=== PATIENT | male | born 1960 | race Caucasian/White ===

== ENCOUNTER 2018-03-06 09:11 | Inpatient (IN) | payer OTHER ==
[2018-03-06] VITALS (10 sets, daily range): BP systolic 87–111; BP diastolic 42–78
[~2018-03-06] VITALS: Ht 185.4 cm; Wt 86.2 kg
--- NOTE | ~2018-03-06 | EKG ---
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
[2018-03-06 09:29] LABS: HEMATOCRIT 47.3 % (42.0-52.0); HEMOGLOBIN 15.9 gm/dL (14.0-18.0); MCH 30.4 pg (26.0-34.0); MCHC 33.7 g/dL (28.0-37.0); PLATELET COUNT 273 thou/uL (150-400); RBC 5.25 mil/uL (4.50-6.00); RDW 13.7 % (10.5-14.5); WBC 13.2 thou/uL (4.0-11.0)
[2018-03-06 09:34] LABS: ANION GAP 12 mmol/L (7-16); BUN 85 mg/dL (7-18); CALCIUM 9.4 mg/dL (8.5-10.1); CHLORIDE 91 mmol/L (98-107); CO2 27 mmol/L (21-32); CREATININE 3.4 mg/dL (0.7-1.3); GLUCOSE 123 mg/dL (74-106); POTASSIUM 3.1 mmol/L (3.5-5.1); SODIUM 130 mmol/L (136-145)
[2018-03-06 09:42] LABS: ALBUMIN 3.2 g/dL (3.4-5.0); DIRECT BILIRUBIN < 0.1 mg/dL (<0.1-0.3); LIPASE 231 U/L (73-393); SGOT 48 U/L (15-37); SGPT 56 U/L (30-65); TOTAL BILIRUBIN 0.3 mg/dL (<0.1-1.0); TOTAL PROTEIN 7.2 g/dL (6.4-8.2); TROPONIN-I 0.08 ng/mL (<0.06)
[2018-03-06 10:14] LABS: ABSOLUTE NEUTROPHILS 8.8 thou/uL (1.4-8.2); ANISOCYTOSIS SLIGHT; ATYPICAL LYMPHS 3 %
--- NOTE | 2018-03-06 10:33 | NUR ---
CARDIZEM DRIP D/C AT THIS TIME PER DR. BUSTILLOS D/T PROGRESSING HYPOTENSION
[2018-03-06 11:39] LABS: MAGNESIUM 2.1 mg/dL (1.8-2.4)
[2018-03-06] MEDS ORDERED: PRINIVIL10 MG PO (12:46)
[2018-03-06] MEDS ORDERED: PROAIR HFA8.5 GM INH (12:47)
[2018-03-06] MEDS ORDERED: LIPITOR40 MG PO (12:47)
[2018-03-06] MEDS ORDERED: ASPIR-LOW81 MG PO (12:48)
--- NOTE | 2018-03-06 13:40 | EKG ---
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
[2018-03-06 15:22] LABS: URINE BILIRUBIN NEGATIVE (Negative); URINE BLOOD 1+ (Negative); URINE CLARITY CLEAR; URINE COLOR YELLOW; URINE GLUCOSE-RANDOM* NEGATIVE (Negative); URINE KETONES NEGATIVE (Negative); URINE LEUKOCYTES-REFLEX NEGATIVE (Negative); URINE NITRITE-REFLEX NEGATIVE (Negative); URINE PROTEIN (DIPSTICK) NEGATIVE (Negative); URINE UROBILINOGEN 0.2 E.U./dl (0.2-1.0)
[2018-03-06 15:25] LABS: AMP/METHAMP Negative (Negative); BARBITURATES Negative (Negative); BENZODIAZEPINES Negative (Negative); COCAINE Negative (Negative); METHADONE Negative (Negative); OPIATES Negative (Negative); PCP Negative (Negative)
[2018-03-06 15:26] LABS: BACTERIA-REFLEX None Seen /HPF (None Seen); CRYSTALS None Seen /LPF (None Seen); HYALINE CASTS 0-3 Few /LPF (None Seen); SQUAMOUS None Seen /LPF (0-3); URINE RBC None Seen /HPF (0-2); URINE WBC-REFLEX None Seen /HPF (0-5)
--- NOTE | 2018-03-06 18:49 | NUR ---
ASSUMED CARE OF PT (FROM ER) AT APPROX 1200. PT A&OX4, UP WITH STANDBY. PT IS STEADY BUT FALL RISK DUE TO LOW BP, AND MULTIPLE IV LINES. PT ON AMIODARONE AND DILT DRIP AND HEART RATE IS AFIB AT APPROX 118 BPM. PTS BLOOD PRESSURE SLIGHTLY LOW BUT MAP ABOVE 70. PT'S HEART RATE INCREASES TO 140'S WHEN UP TO BATHROOM. PT SEEN BY CARDIOLOGY. IF HEART RATE IS WNL CARDIZEM TO BE TITRATED DOWN OR DISCONTINUED FIRST AND AMIODARONE CONTINUED OVERNIGHT. PT REHYDRATED WITH FLUIDS AND URINATING ADEQUATE AMOUNT OF LIGHT YELLOW CLR URINE. WILL CONT WITH POC.
[2018-03-07] VITALS (11 sets, daily range): BP systolic 86–122; BP diastolic 58–80
[2018-03-07 05:36] LABS: ABSOLUTE NEUTROPHILS 6.4 thou/uL (1.4-8.2); BASOPHILS 0.2 % (0.0-2.0); EOSINOPHILS 0.7 % (0.0-3.0); LYMPHOCYTES 29.3 % (24.0-44.0); MCH 30.5 pg (26.0-34.0); MCV 89.8 fL (80.0-100.0); MONOCYTES 11.9 % (1.0-8.0); PLATELET COUNT 220 thou/uL (150-400); POLYS 57.9 % (36.0-66.0); RBC 4.24 mil/uL (4.50-6.00); RDW 13.6 % (10.5-14.5); WBC 11.1 thou/uL (4.0-11.0)
[2018-03-07 05:37] LABS: HEMOGLOBIN 12.9 gm/dL (14.0-18.0)
[2018-03-07 05:57] LABS: ANION GAP 9 mmol/L (7-16); BUN 32 mg/dL (7-18); CALCIUM 8.3 mg/dL (8.5-10.1); CHLORIDE 106 mmol/L (98-107); CHOLESTEROL 102 mg/dL (<200); CO2 22 mmol/L (21-32); GLUCOSE 102 mg/dL (74-106); HDL CHOLESTEROL 27 mg/dL (>40); LDL CHOLESTEROL 44 mg/dL (<100); MAGNESIUM 1.9 mg/dL (1.8-2.4); POTASSIUM 4.3 mmol/L (3.5-5.1); SODIUM 137 mmol/L (136-145); TC:HDL 3.8 Ratio (Not establshd); TRIGLYCERIDE 156 mg/dL (<150); VLDL 31 mg/dL (<40)
[2018-03-07 06:00] LABS: CREATININE 0.9 mg/dL (0.7-1.3)
[2018-03-07 06:01] LABS: SERUM ASSESSMENT Clear
--- NOTE | 2018-03-07 07:55 | NUR ---
NO C/O PAIN DURING THE NIGH; SBP DECRESED TO 80'S DURING THE NIGHT; CARDIOLOGY PROVIDER CONTACTED CHARGED; NO NEW ORDERS; AMIODARONE AND CARDIZEM RUNNING PER PROTOCOL AND DR. GUARDADO ACCORDILING; BP MONITOR QH; IMPROVED EARLY ON THE MORNING; HR BETWEEN 70 AND 80'S AROUND MIDNIGHT; NO CARDIZEM TITRATED PER DR. GUARDADO; ASSESSMENT CHARGED; FOLLOWING POC; PASS ON REPORT.
--- NOTE | 2018-03-07 10:52 | EKG ---
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 : 1960 Requested By: Selin March Order Number: [id number] MD: Sachin Pack Measurements Intervals [place] Rate: 90 P: WI: QRS: 70 QRSD: 95 T: -63 QT: 377 QTc: 462 Interpretive Statements Atrial fibrillation Borderline T abnormalities, inferior leads Compared to ECG 03/06/2018 09:18:25 Heart rate has slowed ST and T wave abnormality is less pronounced Electronically Signed On 03-07-2018 10:52:34 APPLIED COMPUTER SCIENCE PROFESSOR by Sachin Pack [email or web address] <ELECTRONICALLY SIGNED> By: Sachin Pack MD, [facility] 03/07/18 1052 0742 0742 Sachin Pack MD, [facility] /EPI
--- NOTE | 2018-03-07 14:00 | 2DMMODE ---
[facility] [address] [place] [address] 2 D/M-MODE ECHOCARDIOGRAM Name: PHUONG ROGERS Room #: 206-P [facility] IN .R.#: [id number] Admission: 03/06/18 Attend Phys: Clifford Ponce MD Discharge: Date of : 60 Date of Service: 03/07/18 1359 Report #: [id number] THIS REPORT FOR: //name// APPROVED REPORT Study performed: 03/07/2018 10:04:45 EXAM: Comprehensive 2D, Doppler, and color-flow Echocardiogram Patient Location: Bedside Room #: 206 Status: on-call BSA: 2.11 HR: 84 bpm BP: 106/75 mmHg Rhythm: Atrial Fibrillation Other Information Study Quality: Adequate Risk Factors: Cardiac Risk Factors: HTN, Hyperlipidemia, Smoking Indications CAD 2D Dimensions IVSd: 9.88 (7-11mm) LVOT Diam: 21.00 (18-24mm) LVDd: 52.59 mm PWd: 10.39 (7-11mm) Ascending Ao: 33.82 (22-36mm) LVDs: 39.42 (25-40mm) Aortic Root: 30.71 mm LV Single Plane 4CH: 42.70 % LV Single Plane 2CH: 42.18 % Biplane EF: 42.3 % Volumes Left Atrial Volume (Systole) Single Plane 4CH: 52.59 mL Single Plane 2CH: 44.41 mL LA ESV Index: 25.00 mL/m2 Aortic Valve AoV Peak Melchor.: 1.04 m/s AO Peak Gr.: 4.31 mmHg LVOT Max P.42 mmHg LVOT Max V: 0.60 m/s [facility] [address] [place] [address] 2 D/M-MODE ECHOCARDIOGRAM Name: ROGERSROBYNPHUONG Marlon Room #: 206-P [facility] IN [facility]#: [id number] Admission: 03/06/18 Attend Phys: Clifford Ponce MD Discharge: Date of : 60 Date of Service: 03/07/18 1359 Report #: [id number] [place] Vmax: 1.98 cm2 Pulmonary Valve PV Peak Melchor.: 0.95 m/s PV Peak Gr.: 3.62 mmHg Tricuspid Valve TR Peak Melchor.: 2.14 m/s RAP Estimate: 7.00 mmHg TR Peak Gr.: 18.25 mmHg PA Pressure: 25.00 mmHg Left Ventricle The left ventricle is normal size. There is normal left ventricular wall thickness. Left ventricular systolic function is mildly decreased. Possible hypokinesis of inferoseptum. LVEF 45%. This study is not technically sufficient to allow evaluation of the LV diastolic function due to atrial fibrillation. Right Ventricle The right ventricle is normal size. The right ventricular systolic function is normal. Atria The left atrium size is normal. The right atrium size is normal. Aortic Valve The aortic valve is normal in structure. No aortic regurgitation is present. There is no aortic valvular stenosis. Mitral Valve The mitral valve is normal in structure. Mild mitral regurgitation. No evidence of mitral valve stenosis. Tricuspid Valve The tricuspid valve is normal in structure. Trace tricuspid regurgitation. Pulmonary artery pressure is 25 mmHg. Pulmonic Valve The pulmonary valve is normal in structure. There is no pulmonic valvular regurgitation. Great Vessels The aortic root is normal in size. IVC is normal in size and collapses >50% with inspiration. Pericardium [facility] [address] [place] [address] 2 D/M-MODE ECHOCARDIOGRAM Name: PHUONG ROGERS Room #: 206-P ADM IN .R.#: [id number] Admission: 03/06/18 Attend Phys: Clifford Ponce MD Discharge: Date of : 60 Date of Service: 03/07/18 1359 Report #: [id number] There is no pericardial effusion. <Conclusion> Left ventricular systolic function is mildly decreased. Possible hypokinesis of inferoseptum. LVEF 45%. The aortic valve is normal in structure. No aortic regurgitation or stenosis The mitral valve is normal in structure. Mild mitral regurgitation. Trace tricuspid regurgitation. Pulmonary artery pressure of 25 mmHg. There is no pericardial effusion. <ELECTRONICALLY SIGNED> By: Sachin Pack MD, [facility] 03/07/18 1359 1359 135 Sachin Pack MD, FACC /INF
--- NOTE | 2018-03-07 17:50 | NUR ---
ASSUMED CARE OF PT AT SHIFT CHANGE. ASSESSMENTS CHARTED. MEDS GIVEN PER APR. PT AOX4, VSS, PT UP STANDBY TO INDEPENDENT, VOIDING ADEQUATELY. NO C/O PAIN, DENIES CHEST PAIN. PT DENIES N/V, DIET CHANGED TO HH PER DR ORDERS. PT TOLERATING WELL. O2 SATS REMAIN WNL ON ROOM AIR. NO S/SX OF CARDIAC OR RESP DISTRESS NOTED. WILL CONTINUE TO MONITOR AND FOLLOW POC.
[2018-03-08 04:30] VITALS: BP 116/74
--- NOTE | 2018-03-08 06:02 | NUR ---
PT. ABLE TO REST DURING THE NIGHT; NO C/O PAIN; ASSESSMENT CHARGED; FOLLOWING POC.
[2018-03-08 07:45] VITALS: BP 133/70
[2018-03-08] MEDS ORDERED: CARDIZEM CD240 MG PO (08:51)
[2018-03-08] MEDS ORDERED: XARELTO10 MG PO (08:51)
[2018-03-08 11:40] VITALS: BP 96/71
[2018-03-08] MEDS ORDERED: METOPROLOL SUCC50 MG PO (12:22)
[2018-03-08 13:00] VITALS: BP 96/71
[2018-03-08 14:15] VITALS: BP 96/71
[2018-03-08 15:08] VITALS: BP 96/71
--- NOTE | 2018-03-08 15:10 | NUR ---
ASSUMED CARE OF PT AT SHIFT CHANGE. ASSESSMENTS CHARTED. MEDS GIVEN PER APR. PT AOX4, VSS, HR INCREASED THIS SHIFT, CARDIOLOGY NOTIFIED AND AWARE, NO NEW ORDERS. NO C/O PAIN, DENIES CHEST PAIN AND NAUSEA/VOMITING. O2 SATS WNL ON ROOM AIR. NO S/SX OF CARDIAC OR RESP DISTRESS NOTED. DC ORDERS IMPLEMENTED. DISCHARGE PACKET AND MED NOTES DISCUSSED WITH PT, COMMUNICATES UNDERSTANDING. IV'S REMOVED, TELEMETRY TAKEN OFF. PT LEFT UNIT AT APPROX 1440 WITH BELONGINGS, SCRIPTS, AND DISCHARGE INFO.
== END 2018-03-08 15:01 | disposition home or self-care (01) | DRG 392 ==
LOC: ER 09:11 → EROBS 11:01 → 2N 11:46
PROVIDERS: Emergency Medicine; Nurse Practitioner; ADMIT Hospitalist
DX: K52.9 Noninfective gastroenteritis and colitis, unspecified (principal); N17.9 Acute kidney failure, unspecified; I48.91 Unspecified atrial fibrillation; I25.10 Atherosclerotic heart disease of native coronary artery without angina pectoris; E78.5 Hyperlipidemia, unspecified; F17.210 Nicotine dependence, cigarettes, uncomplicated; I95.9 Hypotension, unspecified; E87.6 Hypokalemia; E86.0 Dehydration; Z71.6 Tobacco abuse counseling; Z82.3 Family history of stroke; Z82.49 Family history of ischemic heart disease and other diseases of the circulatory system; Z95.5 Presence of coronary angioplasty implant and graft; Z79.899 Other long term (current) drug therapy
CPT/HCPCS: 10194